=== PATIENT | female | born 2000 | race Two or more races ===

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

== ENCOUNTER 2022-07-18 12:48 | Emergency (ER) | payer BC, OTHER ==
[~2022-07-18] VITALS: Ht 170.2 cm; Wt 61.2 kg
[~2022-07-18 12:48] MED LIST: CYCL10TA9 PO; NAPR-1164 PO
--- NOTE | 2022-07-18 13:05 | NUR ---
C/O BILATERAL LOWER ABDOMINAL PAIN X 1 WEEK. "WORSE WHEN EATING"
--- NOTE | 2022-07-18 13:30 | NUR ---
urine sample obtained sent to lab
--- NOTE | 2022-07-18 13:30 | NUR ---
established iv line 20 g right ac ,
--- NOTE | 2022-07-18 13:40 | NUR ---
blood sample obtained sent to lab
[2022-07-18 14:12] LABS: BASOPHILS % (AUTO) 0.6 % (0.0-2.0); EOSINOPHILS % (AUTO) 1.1 % (0.0-6.0); HEMATOCRIT 40 % (33-45); HEMOGLOBIN 13.7 g/dL (11.5-14.8); LYMPHOCYTES # (AUTO) 2.1 K/uL (0.8-4.8); LYMPHOCYTES % (AUTO) 35.8 % (20.0-44.0); MEAN CORPUSCULAR HGB CONC 34 g/dl (31.0-36.0); MEAN CORPUSCULAR VOLUME 88 fL (82-100); MONOCYTES # (AUTO) 0.3 K/uL (0.1-1.30); MONOCYTES % (AUTO) 4.6 % (2.0-12.0); NEUTROPHILS # (AUTO) 3.4 K/uL (1.8-8.9); NEUTROPHILS % (AUTO) 57.9 % (43.0-81.0); PLATELET COUNT (AUTO) 237 K/uL (150-450); RED BLOOD CELL COUNT(AUTO) 4.58 MIL/uL (4.0-5.2); WHITE BLOOD COUNT (AUTO) 5.9 K/uL (4.3-11.0)
[2022-07-18] MEDS ORDERED: IV NS 0.9% 1,000 ML IV ONE (14:30)
[2022-07-18 14:42] LABS: ALBUMIN 4.3 g/dL (3.4-5.0); BILIRUBIN,DIRECT 0.2 mg/dL (0.0-0.2); BILIRUBIN,TOTAL 0.6 mg/dL (0.2-1.0); CREATININE 0.8 mg/dL (0.6-1.3); POTASSIUM 3.9 mmol/L (3.5-5.1); TOTAL PROTEIN, SERUM 7.9 g/dL (6.4-8.2)
--- NOTE | 2022-07-18 14:42 | NUR ---
US tech at bedside
[2022-07-18 15:36] LABS: COLOR,URINE YELLOW (YELLOW); PH,URINE 7.5 (5.0-8.0); PROTEIN,URINE NEGATIVE (NEGATIVE); UGLUCOSE NEGATIVE (NEGATIVE)
[2022-07-18 15:37] LABS: BILIRUBIN,URINE NEGATIVE (NEGATIVE); LEUKOCYTE ESTERASE ,URINE MODERATE (NEGATIVE); NITRITE, URINE NEGATIVE (NEGATIVE); UROBILINOGEN,URINE 0.2 EU/dL (0.2)
[2022-07-18 16:18] LABS: BACTERIA,URINE 3+ /HPF (None Seen); RBC,URINE 0-2 /HPF (0-2); WBC,URINE 51-80 /HPF (0-3)
--- NOTE | 2022-07-18 16:36 | NUR ---
iv line removed per patient request. explains that she may still need it for future use while in the emergency dept but insisted that she want it remove. made aware
[2022-07-18] MEDS ORDERED: ACET325T53 PO (16:50)
[2022-07-18] MEDS ORDERED: CEPH500C2 PO (16:50)
[2022-07-18 17:03] VITALS: BP 103/58
== END 2022-07-18 17:05 | disposition home or self-care (01) ==
LOC: ER 12:48
DX: O23.41 Unspecified infection of urinary tract in pregnancy, first trimester (principal); N39.0 Urinary tract infection, site not specified; R10.30 Lower abdominal pain, unspecified; Z79.899 Other long term (current) drug therapy; Z3A.01 Less than 8 weeks gestation of pregnancy
CPT/HCPCS: 36415; 76805-TC; 80048-TC; 80076-TC; 81001; 83690-TC; 84702-TC; 84703-TC; 85025-TC; 87086-TC

== ENCOUNTER 2022-07-20 14:13 | Emergency (ER) | payer OTHER ==
[~2022-07-20] VITALS: Ht 170.2 cm; Wt 61.2 kg
[~2022-07-20 14:13] MED LIST changes: +ACET325T53 PO; +CEPH500C2 PO
--- NOTE | 2022-07-20 15:45 | NUR ---
AKBAR LUDWIG FOR RECHECKING OF BY US AND STILL COMPLAINTS OF ABDL PAIN 6/10 AND NAUSEA FOR 2WKS. CAME AT ER 2DAYS AGO FOR SAME COMPLAINTS
--- NOTE | 2022-07-20 16:05 | NUR ---
US TECH AT BEDSIDE DOING USG OF ABDOMEN
[2022-07-20 17:35] VITALS: BP 112/75
== END 2022-07-20 17:36 | disposition home or self-care (01) ==
LOC: ER 14:23
DX: O26.891 Other specified pregnancy related conditions, first trimester (principal); R10.9 Unspecified abdominal pain; R11.0 Nausea; Z3A.01 Less than 8 weeks gestation of pregnancy; Z79.899 Other long term (current) drug therapy
CPT/HCPCS: 36415; 76805-TC; 84702-TC

== ENCOUNTER 2022-08-03 14:35 | Emergency (ER) | payer OTHER ==
[~2022-08-03] VITALS: Ht 170.2 cm; Wt 61.2 kg
[2022-08-03 14:43] VITALS: BP 118/77
--- NOTE | 2022-08-03 14:56 | NUR ---
Patient discharged to home in stable condition. Written and verbal after care instructions given. Patient verbalizes understanding of instruction.
== END 2022-08-03 14:56 | disposition home or self-care (01) ==
LOC: ER 14:40
DX: Z02.79 Encounter for issue of other medical certificate (principal)